=== PATIENT | male | born 1960 | race Caucasian/White ===

== ENCOUNTER 2016-09-08 14:12 | Inpatient (IN) | payer BC ==
[~2016-09-08] VITALS: Ht 180.3 cm; Wt 98.9 kg
--- NOTE | ~2016-09-08 | OR ---
Unit #: [id number] #: [id number] Patient: FRANKLIN KENNEY [id number] [address] [place], [place] [address] [id number] MR#: [id number] NAME: FRANKLIN KENNEY. ROOM: 463 Date of Procedure: 09/08/2016 Admission Date: 09/08/2016 Surgeon: Viraj Raymond M.D. : 1960 Attending Physician: Viraj Raymond M.D. Primary Care Physician: Jere Miner M.D. OPERATIVE REPORT PREOPERATIVE DIAGNOSIS Perforated appendicitis. POSTOPERATIVE DIAGNOSIS Perforated gangrenous appendicitis. PROCEDURE PERFORMED Laparoscopic appendectomy, adhesiolysis, drainage of abscess. ANESTHESIA General endotracheal. COMPLICATIONS None. ESTIMATED BLOOD LOSS Minimal. DESCRIPTION OF PROCEDURE After the patient was prepped and draped in the usual fashion. A 1-cm infraumbilical incision was made, a Veress needle was passed. The peritoneal cavity was insufflated in usual fashion. A 5-mm port was placed under direct vision. A lower midline 12-mm port and a right upper quadrant 5-mm port were placed. There was an acute inflammation within the right lower quadrant. There were multiple loops of small bowel adhesed to the anterior abdominal wall with large amount of exudate covering the bowel. The adhesions were able to be broken down bluntly. There was purulent fluid in the right lower quadrant consistent with a developing abscess. This was suctioned free. The appendix was identified, it was stuck to the pelvic sidewall. These adhesions were able to be elevated mostly with blunt dissection. The appendix was necrotic in the midportion and approaching the base. There was a perforation. There was an appendicolith that was adjacent to perforation. This was removed with a stone scoop. The mesentery was dissected and divided with vascular theresa. There was an arterial bleeder which was controlled with an Endo Clip. The cecum was mobilized laterally with some blunt and electrocautery dissection where appropriate in order to adequately expose the base of the appendix in order to get a good angle of approach for the stapling device. The appendix was then divided from the cecum with tissue theresa. There appeared to be a good a 1.5 cm stump, which was viable which was stapled through, flushed with the cecum. The specimen was delivered through the lower midline trocar site with an Unit #: [id number] #: [id number] Patient: FRANKLIN KENNEY Endopouch. Right lower quadrant was copiously irrigated and suctioned free. There was no bleeding. A drain was placed into the peritoneal cavity down the right gutter and into the pelvis and brought out through the right upper quadrant 5-mm trocar site and secured to the skin with a silk ligature. The lower midline trocar was removed. There was no bleeding. The neoClose was used to close the fascia here in the usual fashion. The abdomen desufflated. All wounds were closed with clips. All wounds were infiltrated with 0.5% Marcaine with epinephrine. Dressings applied. The patient was taken to the recovery room in good condition. Dictated by... Isela Helm/scot TD: 09/09/2016 07:45 JOB #: [id number] OPERATIVE REPORT Page 1 of 1 X Viraj Raymond X PROCEDURE OPERATIVE NOTE
--- NOTE | ~2016-09-08 | EKG ---
PATIENT: FRANKLIN KENNEY UNIT #: [id number] Ventricular Rate: 103 BPM Atrial Rate: 103 BPM P-R Interval: 154 ms QRS Duration: 84 ms Q-T Interval: 316 ms QTC Calculation(Bezet): 413 ms P [place]: 29 degrees Calculated R [place]: 40 degrees Calculated T [place]: 5 degrees Diagnosis Line: Sinus tachycardia Diagnosis Line: Otherwise normal ECG Diagnosis Line: No previous ECGs available Diagnosis Line: Confirmed by SHANIQUA LINDSEY MD ([id number]) on Diagnosis Line: 09/10/2016 7:29:33 AM INTERPRETING MD: CÉSAR SIERRA
--- NOTE | ~2016-09-08 | CT2 ---
[facility] A Service of [facility] & [facility] RADIOLOGY TEXT RESULTS PATIENT: FRANKLIN KENNEY LOCATION: [facility] [id number] : [birth year] UNIT #: [id number] AGE: [address]: Viraj Raymond SEX: M ORDER DR: [id number] [facility] [address] [facility] [address]. [place], [place] [address] [id number] I MR#: [id number] Acc #: [id number] NAME: FRANKLIN KENNEY : 1960 SEX: M STUDY DATE/TIME: 09/08/2016 16:43 UNIT: [facility] ROOM: 3 STUDY DESCRIPTION: CT Abd and Pelv W Cont Attending Physician: Viraj Raymond M.D. Ordering Physician: Lorrie Armas P.A.-C. Primary Care Physician: Jere Miner M.D. MEDICAL IMAGING REPORT This report is preliminary unless electronic signature is present EXAM CT abdomen and pelvis with contrast, 09/08/2016 HISTORY 56-year-old male with right lower quadrant abdominal pain beginning today. COMPARISON None. TECHNIQUE Helical scan performed through the abdomen and pelvis following administration of oral and IV contrast. Coronal and sagittal reformatted images. This CT exam was performed with one or more of the following radiation dose reduction techniques: Automatic exposure control, adjustment of mA and/or kV according to patient size, and iterative reconstruction. FINDINGS Visualized lung bases demonstrate mild dependent bibasilar atelectasis. There are multiple small hypoattenuating lesions noted throughout the liver. These are too small to characterize, but likely represent hepatic cysts. The spleen, pancreas, gallbladder, both adrenal glands, and both kidneys appear within normal limits. Abdominal aorta normal in course and caliber without dissection. Small bowel is unremarkable. The appendix is markedly dilated and fluid-filled. There is marked periappendiceal inflammatory stranding. Suspected appendicolith at the base of the appendix. Findings consistent with acute appendicitis. No evidence of abscess. There are a few small foci of extraluminal gas adjacent to the appendix and along the anterior aspect of the right colon consistent with perforation. Remainder of the colon is unremarkable. Urinary bladder and prostate gland unremarkable. No free pelvic fluid. STS. [facility] A Service of [facility] & [facility] RADIOLOGY TEXT RESULTS PATIENT: FRANKLIN KENNEY LOCATION: [facility] 463-01 : [birth year] UNIT #: [id number] AGE: [address]: Viraj Raymond SEX: M ORDER DR: No acute bony abnormality. Bilateral L5 pars defects with grade I/II anterolisthesis L5 on S1. IMPRESSION 1. Acute appendicitis with evidence of perforation. No drainable abscess identified. 2. Multiple small hypoattenuating lesions throughout the liver, too small to characterize, but likely representing hepatic cysts. 3. Bilateral L5 pars defects with grade I/II anterolisthesis L5 on S1. Results were communicated to Lorrie Armas in the Emergency Department at the time of dictation. Dictated by... Juan Benjamin M.D. THIS IS AN ELECTRONICALLY VERIFIED REPORT Juan Benjamin M.D. at 09/09/2016 3:53 PM OMID/veronica TD: 09/09/2016 03:14 JOB #: [id number] MEDICAL IMAGING REPORT Page 1 of 1 COPY
--- NOTE | ~2016-09-08 | DS ---
Unit #: [id number] #: [id number] Patient: FRANKLIN KENNEY [id number] [address] [address] [id number] I MR#: [id number] NAME: FRANKLIN KENNEY ROOM: 463 Age: 56 Sex: M Admission Date: 09/08/2016 : 1960 Discharge Date: 09/15/2016 Attending Physician: Viraj Raymond M.D. Primary Care Physician: Jere Miner M.D. DISCHARGE SUMMARY DIAGNOSIS Perforated appendix. PROCEDURE Laparoscopic appendectomy. HOSPITAL COURSE The patient is a 56-year-old gentleman who presented with a perforated appendix and underwent aforementioned procedure. Postop course relatively uncomplicated. He was kept on antibiotics. His white count decreased. He remained afebrile, advanced to a regular diet for which he tolerated. DISPOSITION The patient will be discharged home in good condition. She is to follow a regular diet as tolerated. Activity levels were discussed. He is to follow up in 10 days. MEDICATIONS 1. [place] 7.5 mg q.4 p.r.n. 2. Phenergan q.4 p.r.n. Dictated by... Edi Howe M.D. JNO/ro TD: 09/16/2016 11:40 JOB #: [id number] DISCHARGE SUMMARY Page 1 of 1 X Edi Howe MD X DISCHARGE SUMMARY
--- NOTE | ~2016-09-08 | CT2 ---
[facility] A Service of [facility] & [facility] RADIOLOGY TEXT RESULTS PATIENT: FRANKLIN KENNEY LOCATION: [facility] 463-01 : [birth year] UNIT #: [id number] AGE: [address]: Viraj Raymond SEX: M ORDER DR: [id number] [facility] [address] [place] [facility]. [place], [place] [address] [id number] I MR#: [id number] Acc #: [id number] NAME: FRANKLIN KENNEY : 1960 SEX: M STUDY DATE/TIME: 09/11/2016 10:32 UNIT: [facility] ROOM: [facility] STUDY DESCRIPTION: CT Abd and Pelv W Cont Attending Physician: Viraj Raymond M.D. Ordering Physician: Francois Dooley III, M.D. Primary Care Physician: Jere Miner M.D. MEDICAL IMAGING REPORT This report is preliminary unless electronic signature is present EXAM CT of the abdomen and pelvis with contrast INDICATION Perforated gangrenous appendicitis. Patient was diagnosed on September 08, 2016 and underwent surgery at that time. TECHNIQUE Axial CT images were obtained from the dome of the diaphragm through the symphysis pubis following the administration of oral and intravenous contrast material. This CT exam was performed with one or more of the following radiation dose reduction techniques: automatic exposure control, adjustment of mA and/or kV according to patient size, and iterative reconstruction. FINDINGS Images through the lung bases demonstrate bibasilar atelectasis. This has increased when compared to the prior examination. Trace bilateral pleural effusions are present as well. Stomach and proximal small bowel appear unremarkable. Gallbladder appears normal. Multiple cysts are seen within the liver. Adrenal glands appear unremarkable. Spleen is somewhat small in caliber. Pancreas is within normal limits. Kidneys appear normal. Patient does have a surgical drain within the right lower quadrant adjacent to the appendectomy site. There is some inflammatory stranding seen around the drain without discrete drainable fluid collection identified. Oral contrast mixed material extends from the terminal ileum into the cecum and descending colon all the way to the level of the hepatic flexure. Multiple dilated loops of small bowel are seen throughout the abdomen. Given the passage of oral contrast material into the colon this would argue against small bowel obstruction at this time but the possibility of early or partial small bowel obstruction is certainly not excluded given degree of dilatation. Urinary bladder STS. [facility] A Service of [facility] & [facility] RADIOLOGY TEXT RESULTS PATIENT: FRANKLIN KENNEY LOCATION: [place] [address] : [birth year] UNIT #: [id number] AGE: [address]: Viraj Raymond SEX: M ORDER DR: appears unremarkable. Trace amount of free fluid is seen within the pelvis. Prostate gland is within normal limits. There is a small fat containing right inguinal hernia. Review of bony windows does not demonstrate any aggressive osseous abnormalities. Trace amount of free fluid is seen within the abdomen as well, tracking along the right pericolic gutter and adjacent to the liver. IMPRESSION 1. The patient is now status post appendectomy. Surgical drain has been placed. There is soft tissue stranding seen within the right lower quadrant without discrete drainable fluid collection noted at this time. 2. Oral contrast material extends into the colon all the way to the level of the hepatic flexure, however patient is noted to have multiple dilated and fluid-filled loops of small bowel. Possibility that this reflects early or partial small bowel obstruction is not excluded given the degree of small bowel dilatation. 3. Increasing bibasilar atelectasis. 4. Multiple hepatic cysts. Dictated by... Danisha Silva M.D. THIS IS AN ELECTRONICALLY VERIFIED REPORT Danisha Silva M.D. at 09/12/2016 1:05 PM ELIF/jw TD: 09/11/2016 16:28 JOB #: [id number] MEDICAL IMAGING REPORT Page 1 of 1 COPY
--- NOTE | ~2016-09-08 | CO ---
Unit #: [id number] #: [id number] Patient: FRANKLIN KENNEY [id number] [address] [place], [place] [address] [id number] I MR#: [id number] NAME: FRANKLIN KENNEY. ROOM: 463 Age: 56 Sex: M Admission Date: 09/08/2016 : 1960 Attending Physician: Viraj Raymond M.D. Primary Care Physician: Jere Miner M.D. Consultation Date: 09/08/2016 CONSULTATION REPORT PRIMARY REASON FOR CONSULTATION Perforated appendicitis. HISTORY OF PRESENT ILLNESS The patient is a 56-year-old gentleman, who approximately 48 hours ago developed onset of abdominal pain. This was mid abdominal. He did have some diarrhea with this. He had some nausea and vomiting as well. He has had loss of appetite. The pain is burning in nature. It became worse over the next 24 hours. The pain was exacerbated with movement and taking deep breaths. It is relieved by nothing. He has not had any previous such symptoms. CT scan done at [facility] demonstrates perforated appendicitis. REVIEW OF SYSTEMS A 10-point review is performed. This is negative other than what was already listed in the history of present illness. PAST MEDICAL HISTORY Significant for reflux and hypertension. PAST SURGICAL HISTORY He has not had any previous abdominal surgeries. MEDICATIONS See his nurse's notes. ALLERGIES He has no known medical allergies. SOCIAL HISTORY He denies any alcohol or drug abuse. He is not a smoker. FAMILY HISTORY Noncontributory. PHYSICAL EXAMINATION GENERAL: He is alert, in acute abdominal discomfort. VITAL SIGNS: Temperature is 98.0, pulse 112, respirations 16, blood pressure 125/84, he is 96% saturated on room air. HEENT: Pupils are equal and round. Extraocular motions are intact. NECK: Supple without adenopathy. HEART: Regular rate and rhythm. LUNGS: Clear to auscultation anteriorly. ABDOMEN: Soft, flat, somewhat distended, exquisitely tender in the right Unit #: [id number] #: [id number] Patient: FRANKLIN KENNEY lower quadrant with guarding and rebound. No masses appreciable. EXTREMITIES: Negative clubbing, cyanosis, or edema. NEUROLOGIC: Negative focal, sensory or motor deficits. SKIN: Warm and dry. DIAGNOSTIC STUDIES IMAGING STUDIES: CT scan demonstrates a perforated appendicitis. LABORATORY RESULTS: White blood cell count is 26.6. UA is benign. ASSESSMENT AND PLAN The patient with perforated acute appendicitis. I have discussed laparoscopic, possible open appendectomy with him. He is agreeable. This will be done today. Dictated by... Isela Helm/scot TD: 09/09/2016 05:54 JOB #: [id number] CONSULTATION REPORT Page 1 of 1 X Viraj Raymond X CONSULTATION REPORT
[~2016-09-08 14:12] MED LIST: LISINOPRIL PO
[2016-09-08 14:57] LABS: BASOPHIL# 0.1 X10e3 (0-0.3); BASOPHIL% 0.4 % (0-2.5); HEMATOCRIT 45.9 % (38.0-50.0); HEMOGLOBIN 14.4 gm/dL (13.0-16.0); LYMPHOCYTE# 1.6 X10e3 (1.0-3.5); MEAN CELL VOLUME 80.9 FL (83-96); MEAN CORPUSCULAR HEMOGLOBIN 25.4 PG (28-34); MEAN CORPUSCULAR HGB CONC 31.4 g/dL (30-36); MONOCYTE# 2.5 X10e3 (0-1.0); MONOCYTE% 9.4 % (3.0-12.0); NEUTROPHIL# 22.4 X10e3 (1.5-7.1); NEUTROPHIL% 84.2 % (40-75); PLATELET COUNT 196 X10e3 (140-420); RED BLOOD COUNT 5.67 X10e (3.90-5.60); RED CELL DISTRIBUTION WIDTH 13.8 % (11.0-15.5); WHITE BLOOD COUNT 26.6 X10e3 (4.0-10.5)
[2016-09-08 14:59] LABS: DIFF IND YES
[2016-09-08 15:16] LABS: ALBUMIN SERUM 4.4 g/dL (3.5-5.0); BILIRUBIN, DIRECT 0.2 mg/dL (0.0-0.2); BILIRUBIN,INDIRECT 1.1 mg/dL (0.0-0.9); BILIRUBIN,TOTAL 1.3 mg/dL (0.2-2.0); BUN/CREATININE RATIO 14.54; CALCIUM SERUM 9.7 mg/dL (8.4-10.2); CREATININE SERUM 1.1 mg/dL (0.6-1.4); GLOM FILT RATE Estimated 75.7 mL/min (>60); POTASSIUM 3.9 mmol/L (3.5-5.1)
[2016-09-08 15:31] LABS: PLATELET ESTIMATE NORMAL (NORMAL)
[2016-09-08 15:32] LABS: RBC NORMAL YES
[2016-09-08 17:11] LABS: URINE SOURCE CLEAN CATCH
[2016-09-08 17:18] LABS: URINE APPEARANCE CLEAR; URINE BILIRUBIN NEG (NEG); URINE BLOOD NEG (NEG); URINE COLOR DK YELLOW; URINE GLUCOSE NEG (NEG); URINE KETONE 3+ (NEG); URINE LEUKOCYTE ESTERASE TRACE (NEG); URINE NITRATE NEG (NEG); URINE PH 5.5 (5-8); URINE PROTEIN 1+ (NEG); URINE SPECIFIC GRAVITY 1.028 (1.003-1.035)
[2016-09-08 17:20] LABS: URINE BACTERIA AUWI NEG (NEGATIVE); URINE SQUAMOUS EPITHELIAL CELL NONE SEEN /[HPF]
[2016-09-08 17:24] LABS: CULTURE INDICATED? NO
[2016-09-09 03:32] LABS: BASOPHIL% 0.1 % (0-2.5); HEMATOCRIT 42.3 % (38.0-50.0); HEMOGLOBIN 13.4 gm/dL (13.0-16.0); LYMPHOCYTE# 1.2 X10e3 (1.0-3.5); LYMPHOCYTE% 6.5 % (17.0-45.0); MEAN CELL VOLUME 81.5 FL (83-96); MEAN CORPUSCULAR HEMOGLOBIN 25.8 PG (28-34); MEAN CORPUSCULAR HGB CONC 31.7 g/dL (30-36); MEAN PLATELET VOLUME 9.1 FL (6.5-11.5); MONOCYTE# 1.3 X10e3 (0-1.0); MONOCYTE% 7.1 % (3.0-12.0); NEUTROPHIL# 15.7 X10e3 (1.5-7.1); NEUTROPHIL% 86.3 % (40-75); PLATELET COUNT 165 X10e3 (140-420); RED BLOOD COUNT 5.19 X10e (3.90-5.60); RED CELL DISTRIBUTION WIDTH 14.1 % (11.0-15.5); WHITE BLOOD COUNT 18.2 X10e3 (4.0-10.5)
[2016-09-09 03:34] LABS: DIFF IND NO
[2016-09-09 03:45] LABS: BUN/CREATININE RATIO 12.5; CALCIUM SERUM 8.6 mg/dL (8.4-10.2); CREATININE SERUM 1.2 mg/dL (0.6-1.4); GLOM FILT RATE Estimated 68.2 mL/min (>60); POTASSIUM 4.1 mmol/L (3.5-5.1)
[2016-09-10 03:52] LABS: HEMATOCRIT 38.8 % (38.0-50.0); HEMOGLOBIN 12.3 gm/dL (13.0-16.0); MEAN CELL VOLUME 82.2 FL (83-96); MEAN CORPUSCULAR HEMOGLOBIN 26.1 PG (28-34); MEAN CORPUSCULAR HGB CONC 31.7 g/dL (30-36); RED BLOOD COUNT 4.72 X10e (3.90-5.60); RED CELL DISTRIBUTION WIDTH 13.8 % (11.0-15.5); WHITE BLOOD COUNT 19.5 X10e3 (4.0-10.5)
[2016-09-11 04:17] LABS: HEMATOCRIT 38.2 % (38.0-50.0); HEMOGLOBIN 12.2 gm/dL (13.0-16.0); MEAN CORPUSCULAR HEMOGLOBIN 25.9 PG (28-34); MEAN PLATELET VOLUME 9.1 FL (6.5-11.5); RED BLOOD COUNT 4.72 X10e (3.90-5.60); RED CELL DISTRIBUTION WIDTH 13.9 % (11.0-15.5); WHITE BLOOD COUNT 21.9 X10e3 (4.0-10.5)
[2016-09-11 04:33] LABS: BILIRUBIN,TOTAL 0.9 mg/dL (0.2-2.0); BUN/CREATININE RATIO 31.81; CALCIUM SERUM 8.2 mg/dL (8.4-10.2); CREATININE SERUM 1.1 mg/dL (0.6-1.4); GLOM FILT RATE Estimated 75.7 mL/min (>60); POTASSIUM 4.8 mmol/L (3.5-5.1); PROTEIN TOTAL SERUM 6.3 g/dL (6.0-8.3)
[2016-09-12 03:22] LABS: BASOPHIL% 0.1 % (0-2.5); EOSINOPHIL# 0.1 X10e3 (0-0.7); EOSINOPHIL% 0.8 % (0.0-7.0); HEMATOCRIT 35.8 % (38.0-50.0); HEMOGLOBIN 11.4 gm/dL (13.0-16.0); LYMPHOCYTE# 1.1 X10e3 (1.0-3.5); LYMPHOCYTE% 6.7 % (17.0-45.0); MEAN CELL VOLUME 80.9 FL (83-96); MEAN CORPUSCULAR HEMOGLOBIN 25.8 PG (28-34); MEAN CORPUSCULAR HGB CONC 31.9 g/dL (30-36); MEAN PLATELET VOLUME 8.7 FL (6.5-11.5); MONOCYTE# 1.8 X10e3 (0-1.0); MONOCYTE% 10.5 % (3.0-12.0); NEUTROPHIL# 13.7 X10e3 (1.5-7.1); NEUTROPHIL% 81.9 % (40-75); PLATELET COUNT 189 X10e3 (140-420); RED BLOOD COUNT 4.42 X10e (3.90-5.60); RED CELL DISTRIBUTION WIDTH 14.2 % (11.0-15.5); WHITE BLOOD COUNT 16.8 X10e3 (4.0-10.5)
[2016-09-12 03:23] LABS: DIFF IND YES
[2016-09-12 04:47] LABS: PLATELET ESTIMATE NORMAL (NORMAL)
[2016-09-12 04:48] LABS: ANISOCYTOSIS MOD; BURR CELLS PRESENT; POIKILOCYTOSIS MOD
[2016-09-13 04:06] LABS: BASOPHIL% 0.1 % (0-2.5); EOSINOPHIL# 0.3 X10e3 (0-0.7); EOSINOPHIL% 1.6 % (0.0-7.0); HEMATOCRIT 36.8 % (38.0-50.0); HEMOGLOBIN 11.7 gm/dL (13.0-16.0); LYMPHOCYTE# 1.4 X10e3 (1.0-3.5); MEAN CORPUSCULAR HEMOGLOBIN 25.8 PG (28-34); MEAN CORPUSCULAR HGB CONC 31.8 g/dL (30-36); MEAN PLATELET VOLUME 8.9 FL (6.5-11.5); MONOCYTE% 12.8 % (3.0-12.0); NEUTROPHIL# 12.1 X10e3 (1.5-7.1); NEUTROPHIL% 76.5 % (40-75); PLATELET COUNT 199 X10e3 (140-420); RED BLOOD COUNT 4.54 X10e (3.90-5.60); WHITE BLOOD COUNT 15.8 X10e3 (4.0-10.5)
[2016-09-13 04:08] LABS: DIFF IND NO
[2016-09-14 03:46] LABS: BASOPHIL% 0.2 % (0-2.5); EOSINOPHIL# 0.3 X10e3 (0-0.7); EOSINOPHIL% 1.7 % (0.0-7.0); HEMOGLOBIN 11.7 gm/dL (13.0-16.0); LYMPHOCYTE# 1.5 X10e3 (1.0-3.5); LYMPHOCYTE% 9.6 % (17.0-45.0); MEAN CELL VOLUME 79.8 FL (83-96); MEAN CORPUSCULAR HGB CONC 32.7 g/dL (30-36); MEAN PLATELET VOLUME 8.2 FL (6.5-11.5); MONOCYTE# 1.9 X10e3 (0-1.0); MONOCYTE% 12.1 % (3.0-12.0); NEUTROPHIL# 12.1 X10e3 (1.5-7.1); NEUTROPHIL% 76.4 % (40-75); PLATELET COUNT 205 X10e3 (140-420); RED BLOOD COUNT 4.51 X10e (3.90-5.60); RED CELL DISTRIBUTION WIDTH 14.1 % (11.0-15.5); WHITE BLOOD COUNT 15.8 X10e3 (4.0-10.5)
[2016-09-14 03:51] LABS: DIFF IND NO
[2016-09-15 02:16] LABS: BASOPHIL% 0.2 % (0-2.5); DIFF IND NO; EOSINOPHIL# 0.3 X10e3 (0-0.7); EOSINOPHIL% 1.5 % (0.0-7.0); HEMATOCRIT 37.6 % (38.0-50.0); HEMOGLOBIN 11.9 gm/dL (13.0-16.0); LYMPHOCYTE# 1.7 X10e3 (1.0-3.5); LYMPHOCYTE% 9.5 % (17.0-45.0); MEAN CELL VOLUME 80.9 FL (83-96); MEAN CORPUSCULAR HEMOGLOBIN 25.5 PG (28-34); MEAN CORPUSCULAR HGB CONC 31.5 g/dL (30-36); MEAN PLATELET VOLUME 8.4 FL (6.5-11.5); MONOCYTE% 10.9 % (3.0-12.0); NEUTROPHIL% 77.9 % (40-75); PLATELET COUNT 252 X10e3 (140-420); RED BLOOD COUNT 4.65 X10e (3.90-5.60); RED CELL DISTRIBUTION WIDTH 14.1 % (11.0-15.5)
[2016-09-15] MEDS ORDERED: LEVOFLOXACIN500 MG PO (12:23)
[2016-09-15] MEDS ORDERED: LORTAB 10-3251 EACH PO (12:25)
[2016-09-15] MEDS ORDERED: PHENERGAN25 M1 PO (12:26)
== END 2016-09-15 13:28 | disposition home or self-care (01) | DRG 340 ==
LOC: CED 14:12 → C4C 17:55 → CEDOF 17:55 → CED 18:23 → C4C 22:13 → CEDOF 22:13 → C4C 09-15 13:28
PROVIDERS: Physician Assistant; Surgery
PROC: 0DTJ4ZZ Resection of Appendix, Percutaneous Endoscopic Approach (ICD-10-PCS; principal; 2016-09-08 20:30)
DX: K35.2 Acute appendicitis with generalized peritonitis (principal); I10 Essential (primary) hypertension; K21.9 Gastro-esophageal reflux disease without esophagitis
CPT/HCPCS: 36415; 74177; 80048; 80053; 80076; 81003; 83690; 85025; 85027; 88304; 93005; 96361; 96374; 96375; 99285; C9113; J0330; J1170; J2185; J2250; J2270; J2370; J2405; J2543; J3010; J3243; J3360; Q9967